=== PATIENT | female | born 1985 ===

== ENCOUNTER 2022-05-20 14:10 | Outpatient (CLI) | payer MEDICAID, SELFPAY ==
[2022-05-20 14:10] VITALS: BMI 46.6
[2022-05-20 14:33] VITALS: BP 133/63; PULSE 66; TEMP 35.8
[2022-05-20 14:42] VITALS: BP 120/75; PULSE 64; RESP 18
[2022-05-20 14:53] VITALS: BP 113/64; PULSE 69
[2022-05-20 15:10] LABS: Actim Prom Negative
[2022-05-20 15:13] VITALS: BP 120/75; PULSE 64
== END 2022-05-20 15:25 | disposition home or self-care (01) ==
LOC: OPOB 14:20 → OBGYN 14:21
PROVIDERS: Absent Provider Family Medicine; Family Provider Family Medicine; Visit Provider Family Medicine
DX: O26.893 Other specified pregnancy related conditions, third trimester (principal); Z3A.40 40 weeks gestation of pregnancy; O99.210 Obesity complicating pregnancy, unspecified trimester; E66.9 Obesity, unspecified
CPT/HCPCS: 59025; 83986; 84112; 99211

== ENCOUNTER 2022-05-21 13:23 | Inpatient (IN) | payer OTHER, MEDICAID, SELFPAY ==
[2022-05-21] VITALS (71 sets, daily range): BP systolic 117–178; BP diastolic 56–121; PULSE 51–100; TEMP 36.2–36.9; O2SAT 86–100; BMI 46.0
[2022-05-21] MEDS: oxytocin 30 UNIT/500 ML BAG IV (08:28)
[2022-05-21] MEDS: dextrose 5%-lactated ringers 1,000 ML 125 ML IV ×2 (08:29→16:30)
[2022-05-21 08:51] LABS: Basophils % 0.3 %; Eosinophils % 0.4 %; Hematocrit 33.9 % (37.0-47.0); Hemoglobin 10.8 g/dL (11.5-15.3); Lymphocytes # 1.1 10^3/uL (0.8-4.8); Lymphocytes % 11.1 %; Mean Corpuscular HGB Conc 31.9 g/dL (30.0-36.0); Mean Corpuscular Hemoglobin 27.6 pg (28.0-34.0); Mean Corpuscular Volume 86.7 fl (81-99); Mean Platelet Volume 12.7 fL (7.4-10.4); Monocytes # 0.8 10^3/uL (0.2-0.9); Monocytes % 8.2 %; Neutrophils # 8.07 10^3/uL (1.8-7.7); Neutrophils % 79.2 %; Nucleated Red Blood Cells % 0 %; Platelet Count 233 10^3/cmm (130-400); Red Blood Count 3.91 10^6/uL (4.1-5.3); Red Cell Distribution Width 12.7 % (12.1-15.1); White Blood Count 10.2 10^3/uL (4.0-10.0)
--- NOTE | 2022-05-21 08:57 | P.HP_ITS ---
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 Her KALI is 05/20/2022 and was confirmed by us early in and more recently by 3rd trimester us. She has no acute concerns today. Her is complicated by lack of care from 23 weeks to 38 weeks. She reports normal labwork and uncomplicated . She has delivered all previous pregnancies vaginally without issue. GBS negative. Patient denies any contractions, bleeding, or fluid loss. Patient reports good movement Present Details : 7 Para: 5 Labs GBS: Negative L&D/Induction Specific History Indication for induction OB: post dates Planned induction method: per pitocin protocol Review of Systems General: Reports: 10 or more systems reviewed and unremarkable except in HPI and below Medications/Allergies Home Medications Medication Instructions Recorded Confirmed Last Taken Type cyclobenzaprine 10 mg tablet 10 mg PO BID PRN muscle spasm 5 04/11/21 04/11/21 Unknown Rx days #10 tabs naproxen 500 mg tablet (Naprosyn) 500 mg PO BID 10 days #20 tabs 04/11/21 04/11/21 Unknown Rx Allergies Allergy/AdvReac Type Severity Reaction Status Date / Time No Known Allergies Allergy Verified 04/11/21 10:46 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 PFSH: Social History Smoking and tobacco status: never smoked Vitals/I&O/Wt Last Vital Signs Temp 97.2 F L 05/21/22 08:35 Pulse 65 05/21/22 08:54 BP 132/76 05/21/22 08:54 O2 Del Method 05/21/22 07:54 Weight last 48 hrs Weight 114.305 kg Physical Exam Const: COMMON NORMALS: no acute distress and patient oriented x3 Eye: COMMON NORMALS: no scleral icterus Neck/C-Spine: COMMON NORMALS: no lymphadenopathy and supple Chest: COMMONS NORMALS: normal inspection of the chest Resp: COMMON NORMALS: normal respiratory effort and clear to auscultation bilaterally Cardio: COMMON NORMALS: regular rate and regular rhythm GI: OTHER: gravid abdomen Extremity: COMMON NORMALS: normal to inspection and no clubbing, cyanosis or edema Neuro: COMMON NORMALS: patient oriented x3 and moves all extremities Psych: COMMON NORMALS: mental status grossly normal MOOD & AFFECT: Yes anxious Data : 05/21/22 07:30 A&P Assessment and plan (1) Term : Plan to proceed with IOL using pitocin. Routine care and labor management. Status: Acute (2) complicated by obesity: Status: Acute Attestations Medical Necessity Statement*: Anticipate 24hour stay after delivery. Coding Level of Care Code Acute Butadiene Converter Operator for Chg Fwd Diagnoses Term Z34.90 complicated by obesity O99.210
[2022-05-21 11:28] LABS: Amphetamines Screen Urine Negative (Negative); Barbiturates Screen Urine Negative (Negative); Benzodiazepines Screen Urine Negative (Negative); Cocaine Screen Urine Negative (Negative); Opiate Screen Urine Negative (Negative); PCP Screen Urine Negative (Negative); THC Screen Urine Positive (Negative)
[2022-05-21] MEDS: lactated ringers 1,000 ML 999 ML IV ×2 (14:02→15:12)
--- NOTE | 2022-05-21 15:02 | ANES.PREANE2 ---
Pre-Anesthetic Assessment Height/Weight: Height 1.57 m Weight 114.305 kg Temp Pulse BP O2 Del Method 97.8 F 70 148/70 05/21/22 12:04 05/21/22 14:42 05/21/22 14:42 05/21/22 07:54 Preop Diagnosis: Planning of labor analgesia Labor epidural Familial anesthetic complications: None Was Beta Nely taken within 24 hours: N/A Was Clonidine taken within 24 hours: N/A Last intake: Full stomach Social No alcohol and No tobacco Exam alert, oriented x 3, clear to auscultation bilaterally and regular rate & rhythm Airway Submandibular: within normal limits Cervical ROM: within normal limits Mallampati: Class II Dentition: full History/ROS No significant history except as noted and No significant complaints Pulmonary None reported CV/HEM None reported None reported Hepatic None reported GI None reported Metabolic None reported Musc/skel None reported Neuropsych None reported Anesthetic Plan ASA status: 2 Anesthesia: Anesthesia Evaluation, Eval. for regional block, General and Regional (specify below) (Labor epidural) Other: I discussed with patient the risk and benefits of labor epidural including PDPH, hypotension, back pain/discomfort/bruising, catastrophic nerve injury including paralysis, abscess, hematoma, failed block, one sided block, and LAST. Patient consents to labor epidural and in case of emergency consents to general anesthesia. Risk of > 500 ml blood loss (7ml/kg in children): No Medications/Allergies Home Medications Medication Instructions Recorded Confirmed Last Taken Type cyclobenzaprine 10 mg tablet 10 mg PO BID PRN muscle spasm 5 04/11/21 04/11/21 Unknown Rx days #10 tabs naproxen 500 mg tablet (Naprosyn) 500 mg PO BID 10 days #20 tabs 04/11/21 04/11/21 Unknown Rx Allergies Allergy/AdvReac Type Severity Reaction Status Date / Time No Known Allergies Allergy Verified 04/11/21 10:46 Current Medications Generic Name Dose Route Start Last Admin Trade Name Freq PRN Reason Stop Dose Admin Dextrose/Lactated Ringer's 1,000 mls @ 125 mls/hr 05/21/22 08:00 05/21/22 14:00 Dextrose 5%-Lactated Ringers IV Infused .Q8H DIPTI Infusion Oxytocin 30 unit in 500 mls @ 2 mls/hr 05/21/22 08:00 05/21/22 12:34 Pitocin IV 16 milliunit/min .Q24H DIPTI 16 mls/hr Titration Protocol 2 MILLIUNIT/MIN Lactated Ringer's 1,000 mls @ 999 mls/hr 05/21/22 13:54 05/21/22 14:02 Lactated Ringers IV 999 mls/hr .Q1H1M PRN Administration See label comments PFSH Anesthesia Social History Smoking and tobacco status: never smoked Female Reproductive History : 7 Data Anesthesia : 05/21/22 07:30 Short CBC 05/21/22 Range/Units 07:30 WBC 10.2 H (4.0-10.0) 10^3/uL Hgb 10.8 L (11.5-15.3) g/dL Hct 33.9 L (37.0-47.0) % MCV 86.7 (81-99) fl Plt Count 233 (130-400) 10^3/cmm Neut % (Auto) 79.2 % Neut # (Auto) 8.07 H (1.8-7.7) 10^3/uL Cardiac Studies: No Data to Display
--- NOTE | 2022-05-21 15:40 | ANES.PROC ---
Anesthesia Procedures Procedure/Date: 05/21/22 Labor Epidural Epidural: Time Out Performed: Yes Consents Signed: Procedure Consent Consent: from patient, risks and benefits reviewed and patient agrees to proceed Lumbar Level: Other (HELENA 8cm ) Epidural position: sitting Epidural procedure: sterile prep of area, 1% lidocaine to numb the area, 18 g needle, negative for paresthesia passed, neg for paresthesia, test dose given, 1.5% xylocaine 1:200k epi (2% Xylocaine 1:200,000 epi ), placed PCEA, no systemic response, sterile dressing applied, L.U.D. no apparent complications and 0.2% Ropiavacaine @ mls/hr (13)
--- NOTE | 2022-05-21 18:01 | P.ANES_ITS ---
Anesthesia Procedures Procedure/Date: 05/21/22 Epidural bolus Procedure Narrative: Pt complaining of pain with contractions. Bolused epidural with 100 mcg of Fentanyl and re-educated on WAREHOUSE SUPERVISOR 3RD SHIFT button for epidural
[2022-05-21] MEDS: hyDROXYzine 25 mg Capsule 50 MG PO (19:26)
--- NOTE | 2022-05-21 20:18 | PM.DELIVERY ---
Delivery Note: Date of delivery: May 21, 2022 Pre-delivery diagnoses: TIUP, post dates Post-delivery diagnoses: same, viable male Procedure: Delivering Physician: Luis Baig MD Findings: 200cc Pre-Delivery Course: This is a 36 that presented for IOL for post dates. She was started on pitocin until good contraction pattern was noted. Contractions slowly grew in intensity and eventually the patient requested epidural. After epidural was placed she did not make good progress, so AROM was performed. She then became increasing more uncomfortable and she progressed quickly to 10cm. Delivery: After cervical dilation was complete, the patient had increasing pressure and heart times start dropping to the 60's with contractions. The infant was then delivered precipitously without issue just prior to physician arrival. After physician arrival the placenta was then delivered without complication. Evaluation of perineum did not demonstrate any tears. Post-Delivery Status: Upon completion of procedure all equipment was accounted for. Uterus was firm and no significant bleeding was noted. History History History 7 Term 6 0 Miscarriages/Ectopic 1 Living Children 6 A&P Assessment and plan (1) Term : Status: Acute (2) complicated by obesity: Status: Acute (3) Spontaneous vaginal delivery: Proceed with routine post care. Status: Acute Coding Level of Care Code Acute Residential Life Director for Chg Fwd Diagnoses Term Z34.90 complicated by obesity O99.210 Spontaneous vaginal delivery O80
[2022-05-22] VITALS (11 sets, daily range): BP systolic 118–158; BP diastolic 66–90; PULSE 58–710; RESP 16–17; TEMP 36.4–36.6; O2SAT 98–100
[2022-05-22] MEDS: benzocaine-menthol 78 gm Canister 1 SPRAY TOPICAL (03:22)
--- NOTE | 2022-05-22 06:39 | PM.OBGYPN ---
SPECIAL AGENT IN CHARGE Subjective Subjective: Interval history: The patient had no acute events overnight. Pain is controllled. Patiient has ambulated and voided without issue. VSS. Medications: Reviewed: Yes Labor: Station: +2 Amniotic Membrane Status: Ruptured Monitor Mode: External Contraction Pattern: Regular Vitals/I&O/Wt Last Vital Signs Temp 97.9 F 05/22/22 03:59 Pulse 65 05/22/22 03:59 BP 132/90 05/22/22 03:59 Pulse Ox 100 05/22/22 03:59 O2 Del Method 05/22/22 03:59 05/21/22 05/21/22 05/22/22 14:59 22:59 06:59 Intake Total 1033.533 / 2058.965 1185 / 2133.533 Output Total 700 / 700 1300 / 2000 Balance 1033.533 / 1033.533 400 / 1433.533 -1300 / 133.533 Weight last 48 hrs Weight 114.305 kg Physical Exam Const: COMMON NORMALS: no acute distress, patient oriented x3 and alert HENMT: COMMON NORMALS: moist oral mucous membranes Neck/C-Spine: COMMON NORMALS: supple Chest: COMMONS NORMALS: normal inspection of the chest Resp: COMMON NORMALS: normal respiratory effort and clear to auscultation bilaterally AUSCULTATION: clear to auscultation bilaterally Cardio: COMMON NORMALS: regular rate, regular rhythm and No murmurs present (Cardio) RATE: regular rate RHYTHM: regular rhythm GI: COMMON NORMALS: Normal to inspection, nondistended, normoactive bowel sounds present and Soft to palpation PALPATION: Yes Soft to palpation Neuro: COMMON NORMALS: patient oriented x3 SENSORIUM/ORIENTATION: Yes alert Psych: COMMON NORMALS: mental status grossly normal Skin: COMMON NORMALS: no rashes or lesions noted GENERAL SKIN EXAM: no rashes or lesions noted Urinary Catheter Management: Mckeon: Cath Placed During This Visit: yes, but has since been removed by the nurse Reason for Continuing Indwelling Catheter: Decision to DC Catheter Urinary Catheter Date of Insertion: 05/21/22 Urinary Catheter Time of Insertion: 16:00 Date Urinary Catheter Removed: 05/21/22 Time Urinary Catheter Discontinued: 19:55 Data : 05/21/22 07:30 A&P Assessment and plan (1) care following vaginal delivery: continue routine post care. Status: Acute Attestations Medical Necessity Statement*: anticipate d/c tomorrow Coding Level of Care Code Acute Membership Coordinator for Chg Fwd Diagnoses care following vaginal delivery Z39.2
[2022-05-22] MEDS: HYDROcodone-acetaminophen 5-325 mg Tablet PO ×3 (06:55→18:40)
[2022-05-22] MEDS: docusate sodium 100 mg Capsule PO ×2 (08:24→18:40)
[2022-05-22] MEDS: ibuprofen 800 mg tablet PO ×3 (08:24→21:26)
[2022-05-22] MEDS: prenatal vitamin Capsule 1 CAP PO (08:24)
[2022-05-22 08:41] LABS: Hemoglobin 10.2 g/dL (11.5-15.3); Mean Corpuscular HGB Conc 30.9 g/dL (30.0-36.0); Mean Corpuscular Hemoglobin 27.1 pg (28.0-34.0); Mean Corpuscular Volume 87.8 fl (81-99); Mean Platelet Volume 12.3 fL (7.4-10.4); Platelet Count 238 10^3/cmm (130-400); Red Blood Count 3.76 10^6/uL (4.1-5.3); Red Cell Distribution Width 12.9 % (12.1-15.1); White Blood Count 11.3 10^3/uL (4.0-10.0)
[2022-05-23 04:22] VITALS: BP 123/79; PULSE 54; TEMP 36.8; O2SAT 98
[2022-05-23] MEDS: HYDROcodone-acetaminophen 5-325 mg Tablet PO (06:10)
--- NOTE | 2022-05-23 08:02 | P.DS_ITS ---
Discharge Providers ENVIRONMENTAL COORDINATOR Date of Admission: 05/21/22 13:23 Date of Discharge: 05/23/22 Attending Provider at Admission: Vignesh Baig MD Attending Provider at Discharge: Vignesh Baig MD Primary Care Provider: Vignesh Baig MD Diagnoses at Discharge Discharge Diagnosis (1) care following vaginal delivery: Details from hospital stay: This is a 36 y/o that presented for IOL for post dates. She was initially started on pitocin and eventually entered into a regular contraction pattern. She did not make significant change until after AROM was attempted. She then slow changed to 5cm dilation and then quickly progressed after that. she delivered precipitously just prior to physician arrival. She had no significant complication. Post care was unremarkable. Status: Acute Reason for Visit Reason for Visit: LABOR INDUCTION Information Peripartum Data: Delivery Method: Vaginal Laceration description: None Episiotomy description: None complications: none Physical Exam Const: COMMON NORMALS: no acute distress and patient oriented x3 Neck/C-Spine: COMMON NORMALS: no lymphadenopathy and supple Chest: COMMONS NORMALS: normal inspection of the chest Resp: COMMON NORMALS: normal respiratory effort Cardio: COMMON NORMALS: regular rate and regular rhythm RATE: regular rate RHYTHM: regular rhythm GI: COMMON NORMALS: Normal to inspection, nondistended, normoactive bowel sounds present Neuro: COMMON NORMALS: patient oriented x3 and moves all extremities Psych: COMMON NORMALS: mental status grossly normal Urinary Catheter Management: Mckeon: Cath Placed During This Visit: yes, but has since been removed by the nurse Reason for Continuing Indwelling Catheter: Decision to DC Catheter Urinary Catheter Date of Insertion: 05/21/22 Urinary Catheter Time of Insertion: 16:00 Date Urinary Catheter Removed: 05/21/22 Time Urinary Catheter Discontinued: 19:55 History History History 7 Term 6 0 Miscarriages/Ectopic 1 Living Children 6 Discharge Data Studies Completed and Pending Laboratory Results WBC 11.3 10^3/uL (4.0-10.0) H 05/22/22 08:30 RBC 3.76 10^6/uL (4.1-5.3) L 05/22/22 08:30 Hgb 10.2 g/dL (11.5-15.3) L 05/22/22 08:30 Hct 33.0 % (37.0-47.0) L 05/22/22 08:30 MCV 87.8 fl (81-99) 05/22/22 08:30 MCH 27.1 pg (28.0-34.0) L 05/22/22 08:30 MCHC 30.9 g/dL (30.0-36.0) 05/22/22 08:30 RDW 12.9 % (12.1-15.1) 05/22/22 08:30 Plt Count 238 10^3/cmm (130-400) 05/22/22 08:30 MPV 12.3 fL (7.4-10.4) H 05/22/22 08:30 Neut % (Auto) 79.2 % 05/21/22 07:30 Lymph % (Auto) 11.1 % 05/21/22 07:30 Ferry % (Auto) 8.2 % 05/21/22 07:30 Eos % (Auto) 0.4 % 05/21/22 07:30 Baso % (Auto) 0.3 % 05/21/22 07:30 Neut # (Auto) 8.07 10^3/uL (1.8-7.7) H 05/21/22 07:30 Lymph # (Auto) 1.1 10^3/uL (0.8-4.8) 05/21/22 07:30 Ferry # (Auto) 0.8 10^3/uL (0.2-0.9) 05/21/22 07:30 Eos # (Auto) 0.0 10^3/uL (0.0-0.8) 05/21/22 07:30 Baso # (Auto) 0.0 10^3/uL (0.0-0.1) 05/21/22 07:30 Nucleated RBC % (auto) 0 % 05/21/22 07:30 Nucleated RBCs # 0.0 /100WBC 05/21/22 07:30 Urine Opiates Screen Negative ng/mL (Negative) 05/21/22 11:00 Ur Barbiturates Screen Negative ng/mL (Negative) 05/21/22 11:00 Ur Phencyclidine Scrn Negative ng/mL (Negative) 05/21/22 11:00 Ur Amphetamines Screen Negative ng/mL (Negative) 05/21/22 11:00 U Benzodiazepines Scrn Negative ng/mL (Negative) 05/21/22 11:00 Urine Cocaine Screen Negative ng/mL (Negative) 05/21/22 11:00 U Marijuana (THC) Screen Positive ng/mL (Negative) H 05/21/22 11:00 Vitals Last Vital Signs Temp 98.3 F 05/23/22 04:22 Pulse 54 L 05/23/22 04:22 Resp 16 05/22/22 22:30 BP 123/79 05/23/22 04:22 Pulse Ox 98 05/23/22 04:22 O2 Del Method 05/23/22 04:22 Discharge Plan Discharge Patient Disposition: Home Condition: Stable Prescriptions: Continued naproxen [Naprosyn] 500 mg tablet 500 mg PO BID 10 Days Qty: 20 0RF cyclobenzaprine 10 mg tablet 10 mg PO BID PRN (Reason: muscle spasm) 5 Days Qty: 10 0RF Discharge Orders: Discharge Order (Routine); Ordered 05/23/22 Ordered By: Vignesh Baig Discharge Diet: Advance as tolerated and Usual diet Discharge Activity: Limit activity as instructed Patient Instructions: Opioid Safety Discharge Attestations ENVIRONMENTAL COORDINATOR Time Spent in Discharge Care*: less than 30 min Coding Level of Care Code Acute Cold Roller for Chg Fwd Diagnoses care following vaginal delivery Z39.2
[2022-05-23] MEDS: ibuprofen 800 mg tablet PO (09:03)
[2022-05-23] MEDS: prenatal vitamin Capsule 1 CAP PO (09:03)
[2022-05-23] MEDS: docusate sodium 100 mg Capsule PO (09:03)
[2022-05-23 12:00] VITALS: BP 145/83; PULSE 69; RESP 16; TEMP 36.6
== END 2022-05-23 12:15 | disposition home or self-care (01) | DRG 807 ==
LOC: OPOB 13:23 → OBGYN 13:23
PROVIDERS: Admitting Provider Family Medicine; PCP Family Medicine; Visit Provider Family Medicine
DX: O48.0 Post-term pregnancy (principal); Z37.0 Single live birth; O99.214 Obesity complicating childbirth; Z3A.40 40 weeks gestation of pregnancy
CPT/HCPCS: 12345; 36415; 51702; 59409; 80306; 85025; 85027; J2795; J3010

== ENCOUNTER 2024-02-11 16:53 | Emergency (ER) | payer SELFPAY ==
[2024-02-11 17:22] VITALS: BP 139/91; PULSE 60; RESP 18; TEMP 36.8; O2SAT 97
[2024-02-11] MEDS: dexamethasone 10 mg/mL INJ IM (17:34)
--- NOTE | 2024-02-11 17:40 | W.ED.SKABFB ---
Documented by User: [email or web address] Downs 02/11/24 17:45 HPI - Skin/Abscess/Foreign Bdy General: Chief complaint: Skin/Abscess/Foreign Body Stated complaint: poison evelyn Time Seen by Provider: 02/11/24 17:17 Source: patient Mode of arrival: ambulatory Limitations: no limitations History of Present Illness: Patient is a 38-year-old female presenting to the emergency department for poison evelyn exposure with past few days. She reports itching and a rash that is to her face, bilateral upper extremities, and bilateral anterior thighs. She states that she herself has tried hydrocortisone, apple cider vinegar baths, and other various tuvm-nzb-mpfmyqm remedies that have not improved her symptoms. She denies any oropharyngeal swelling, respiratory complaints, or other symptoms at this time. MD complaint: rash Onset (ago): day(s) Location: face, LUE, RUE, LLE and RLE Severity: moderate Quality: pruritic Pain Consistency: constant Associated symptoms: Deny chills, fever(s), nausea or vomiting Review of Systems General: Reports: 10 or more systems reviewed and unremarkable except in HPI and below Const: Denies: fever(s), chills or fatigue Eyes: Denies: change in vision ENMT: Denies: throat pain, ear or mastoid pain or nasal discharge Card: Denies: chest pain, palpitations, swelling of feet/ankles or lightheadedness Resp: Denies: dyspnea, productive cough or wheezing GI: Denies: abdominal pain, nausea, vomiting, diarrhea or constipation : Denies: flank pain, difficulty voiding, dysuria or urinary frequency Musc: Denies: neck pain, back pain or joint pain Skin/Breast: Reports: rash and pruritus Neuro: Denies: headache(s), numbness in extremities or weakness in extremities PFSH ED PFSH: Social History Smoking and tobacco/nicotine status: never used tobacco/nicotine Physical Exam Const: COMMON NORMALS: no acute distress, patient oriented x3, no limitations, healthy appearing and alert GENERAL APPEARANCE: cooperative and comfortable ORIENTATION/CONSCIOUSNESS: Yes awake HENMT: COMMON NORMALS: normocephalic and atraumatic HEAD & SCALP: normocephalic and atraumatic OTHER: No angioedema or posterior oropharynx swelling Eye: COMMON NORMALS: EOMs intact bilaterally and conjunctivae normal PERIORBITAL: periorbital findings normal CONJUNCTIVA: Yes conjunctivae normal Neck/C-Spine: COMMON NORMALS: full ROM and no lymphadenopathy Resp: COMMON NORMALS: normal respiratory effort, No use of accessory muscles and clear to auscultation bilaterally AUSCULTATION: clear to auscultation bilaterally Cardio: COMMON NORMALS: regular rate, regular rhythm, S1 normal heart sound present, S2 normal heart sound present and No murmurs present (Cardio) RATE: regular rate RHYTHM: regular rhythm HEART SOUNDS: S1 normal heart sound present and S2 normal heart sound present Neuro: COMMON NORMALS: patient oriented x3 SENSORIUM/ORIENTATION: Yes alert Skin: NARRATIVE SKIN EXAM: Pruritic, linear erythematous rash to patient's face, bilateral forearms, and bilateral thighs. No active oozing or draining. Course Vital Signs: Vital signs: Vital Signs Temperature 98.2 F 02/11/24 17:22 Pulse Rate 60 02/11/24 17:22 Respiratory Rate 18 02/11/24 17:22 Blood Pressure 139/91 02/11/24 17:22 Pulse Oximetry 97 02/11/24 17:22 Oxygen Delivery Me thod Room Air 02/11/24 17:22 MDM - Skin/Abscess/Foreign Bdy Medicial Decision Making Patient presented with clinical signs and symptoms of poison evelyn dermatitis. She did not have any of the emergent findings such as tongue or throat swelling or respiratory distress. She had been trying multiple mqnw-vie-okjcofb remedies, however today I will give her a shot of Decadron and send her home with some better steroids to take to help with her inflammation. She will follow-up with primary care and return with any new or worsening. No radiology studies performed this visit Discharge Plan Discharge Patient Disposition: Home Clinical Impression: Poison evelyn dermatitis Condition: Stable Prescriptions: New prednisone 20 mg tablet 60 mg PO ONCE 5 Days Qty: 15 0RF triamcinolone acetonide 0.1 % cream 1 applic topical DAILY Qty: 15 0RF No Action naproxen [Naprosyn] 500 mg tablet 500 mg PO BID 10 Days Qty: 20 0RF cyclobenzaprine 10 mg tablet 10 mg PO BID PRN (Reason: muscle spasm) 5 Days Qty: 10 0RF Discharge Orders: Discharge ED (Routine); Ordered 02/11/24 Ordered By: Carlos Martin Referrals: Vignesh Baig MD [Primary Care Provider] - Discharge Diet: Advance as tolerated Discharge Activity: Resume usual activity Patient Instructions: Poison Evelyn (ED) Activity Restrictions/Additional Instructions: Prednisone. Apply topical triamcinolone as directed. Avoid itching. Avoid future contact. Follow-up with primary care. Coding Level of Care Code ED Boiling House Hand for Chg Fwd Documented by User: Regino Lauren DO 02/14/24 21:35 HPI - Skin/Abscess/Foreign Bdy General: Chief complaint: Skin/Abscess/Foreign Body Stated complaint: poison evelyn Time Seen by Provider: 02/11/24 17:17 PFSH ED PFSH: Social History Smoking and tobacco/nicotine status: never used tobacco/nicotine Course Vital Signs: Vital signs: Vital Signs Temperature 98.2 F 02/11/24 17:22 Pulse Rate 60 02/11/24 17:22 Respiratory Rate 18 02/11/24 17:22 Blood Pressure 139/91 02/11/24 17:22 Pulse Oximetry 97 02/11/24 17:22 Oxygen Delivery Me thod Room Air 02/11/24 17:22 MDM - Skin/Abscess/Foreign Bdy Medicial Decision Making Patient presented with clinical signs and symptoms of poison evelyn dermatitis. She did not have any of the emergent findings such as tongue or throat swelling or respiratory distress. She had been trying multiple wnzw-ezp-vagbbgm remedies, however today I will give her a shot of Decadron and send her home with some better steroids to take to help with her inflammation. She will follow-up with primary care and return with any new or worsening. Chart reviewed Discharge Plan Discharge Patient Disposition: Home Clinical Impression: Poison evelyn dermatitis Condition: Stable Prescriptions: New prednisone 20 mg tablet 60 mg PO ONCE 5 Days Qty: 15 0RF triamcinolone acetonide 0.1 % cream 1 applic topical DAILY Qty: 15 0RF No Action naproxen [Naprosyn] 500 mg tablet 500 mg PO BID 10 Days Qty: 20 0RF cyclobenzaprine 10 mg tablet 10 mg PO BID PRN (Reason: muscle spasm) 5 Days Qty: 10 0RF Discharge Orders: Discharge ED (Routine); Ordered 02/11/24 Ordered By: Carlos Martin Referrals: Vignesh Baig MD [Primary Care Provider] - Discharge Diet: Advance as tolerated Discharge Activity: Resume usual activity Patient Instructions: Poison Evelyn (ED) Activity Restrictions/Additional Instructions: Prednisone. Apply topical triamcinolone as directed. Avoid itching. Avoid future contact. Follow-up with primary care. Coding Level of Care Code ED Boiling House Hand for Diya Felix
== END 2024-02-11 17:50 | disposition home or self-care (01) ==
PROVIDERS: Emergency Provider Physician Assistant; PCP Family Medicine
DX: L23.7 Allergic contact dermatitis due to plants, except food (principal)
CPT/HCPCS: 96372; 99284; J1100